=== PATIENT | female | born 1980 | race Asian ===

== ENCOUNTER → 2020-04-10 | Outpatient (CLI) | payer BC ==
[2020-04-10 11:25] LABS: BASOPHILS # (AUTO) 0.1 10^3/uL (0.0-0.1); BASOPHILS % (AUTO) 0.9 %; EOSINOPHILS # (AUTO) 0.9 10^3/uL (0.0-0.7); EOSINOPHILS % (AUTO) 11.7 %; HGB - HEMOGLOBIN 15.5 g/dL (12.0-16.0); LYMPHOCYTES # (AUTO) 2.5 10^3/uL (1.5-3.5); LYMPHOCYTES % (AUTO) 32.6 %; MEAN CORPUSCULAR HGB CONC 33.1 g/dL (32.0-36.0); MEAN CORPUSCULAR VOLUME 87.6 fL (81.0-99.0); MEAN PLATELET VOLUME 9.4 fL (7.9-10.8); MONOCYTES # (AUTO) 0.5 10^3/uL (0.0-1.0); MONOCYTES % (AUTO) 5.9 %; NEUTROPHILS # (AUTO) 3.7 10^3/uL (1.5-6.6); NEUTROPHILS % (AUTO) 48.6 %; PLT - PLATELET COUNT 429 10^3/uL (130-450); RED BLOOD COUNT 5.34 10^6/uL (4.20-5.40); RED CELL DISTRIBUTION WIDTH 12.5 % (12.0-15.0); WHITE BLOOD COUNT 7.7 x10^3/uL (4.8-10.8)
[2020-04-10 12:00] LABS: ALBUMIN 4.5 g/dL (3.2-5.5); ALBUMIN/GLOBULIN RATIO 1.3 (1.0-2.2); BILIRUBIN,TOTAL 0.4 mg/dL (0.2-1.0); CALCIUM 9.4 mg/dL (8.5-10.3); CREATININE 0.6 mg/dL (0.4-1.0); TOTAL PROTEIN 7.9 g/dL (6.7-8.2)
== END ==
LOC: LAB.WCP 07:59
PROVIDERS: ATTEND Family Medicine
DX: K11.1 Hypertrophy of salivary gland (principal); R03.0 Elevated blood-pressure reading, without diagnosis of hypertension; K11.8 Other diseases of salivary glands
CPT/HCPCS: 36415; 80053; 82670; 84443; 85025; 85651

== ENCOUNTER 2020-07-14 12:41 | Outpatient (CLI) | payer BC | END 2020-07-14 12:42 | disposition home or self-care (01) | LOC: DI.N 12:41 | PROVIDERS: ATTEND Family Medicine | DX: Z53.9 Procedure and treatment not carried out, unspecified reason (principal) ==

== ENCOUNTER 2020-07-18 18:41 | Outpatient (CLI) | payer OTHER, BC ==
--- NOTE | 2020-07-18 22:42 | XRAY Report ---
PROCEDURE: Lumbar Spine 2 View INDICATIONS: Muscle Spasm, Lumbar Region TECHNIQUE: 2 views of the lumbar spine were acquired. COMPARISON: None. FINDINGS: Bones: 5 [id number] vertebrae are present. There is facet arthrosis in the lower lumbar spine. There are multifocal degenerative changes. Anterior osteophytes are seen at multiple levels. There is normal bony alignment. No vertebral body compression fractures. No suspicious bony lesions. Soft tissues: Overlying bowel gas pattern is normal. No suspicious soft tissue calcifications. IMPRESSION: 1. No acute abnormality of the lumbar spine. 2. Chronic multifocal degenerative changes. Reviewed by: Topher Duarte on 07/18/2020 10:40 PM [facility] Approved by: Topher Duarte on 07/18/2020 10:40 PM [facility] Station ID: [id number]
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
== END 2020-07-18 18:42 | disposition home or self-care (01) ==
LOC: DI 18:41
PROVIDERS: ATTEND Family Medicine
DX: R19.03 Right lower quadrant abdominal swelling, mass and lump (principal); M47.816 Spondylosis without myelopathy or radiculopathy, lumbar region
CPT/HCPCS: 72100; 76857

== ENCOUNTER 2020-08-16 09:59 | Outpatient (CLI) | payer BC ==
[2020-08-16] MEDS ORDERED: IOVERSOL 320 50 ML VIAL ONE (10:12)
[2020-08-16] MEDS ORDERED: IOVERSOL 320 100 ML VIAL IVP ONE ×2 (10:12→18:51)
[2020-08-16] MEDS ORDERED: IOVERSOL 320 50 ML VIAL PO ONE (18:51)
--- NOTE | 2020-08-16 19:55 | CT Report ---
PROCEDURE: Abdomen/Pelvis W INDICATIONS: RLQ PELVIC PAIN WITH PELVIC MASS CONTRAST: IV CONTRAST: Optiray 320 ml: 100 PO CONTRAST: Optiray 320 ml50 TECHNIQUE: After the administration of oral and intravenous contrast, 5 mm thick sections acquired from the diap hragms to the symphysis. 5 mm thick coronal and sagittal reformats were acquired. For radiation dos e reduction, the following was used: automated exposure control, adjustment of mA and/or kV accordin g to patient size. COMPARISON: Pelvic ultrasound 07/09/2020.. FINDINGS: Image quality: Excellent. ABDOMEN: Lung bases: Lung bases are clear. Heart size is normal. Solid organs: Liver and spleen are normal in size. Hepatic steatosis. Gallbladder is unremarkable. Biliary system is non dilated. Pancreas enhances normally. No adrenal nodules. Kidneys demonstrat e normal size and enhancement, without hydronephrosis. Peritoneum and bowel: Bowel loops demonstrate normal wall thickness and caliber. Appendix is normal . No free fluid or air. Nodes and vessels: No retroperitoneal or mesenteric adenopathy by size criteria. Aorta and inferior vena cava are normal in size. Miscellaneous: Small fat-containing periumbilical hernia. PELVIS: Genitourinary: Bladder wall thickness is normal. -Soft tissue density lobular mass in the right pelvis abutting the uterus measuring 5.1 x 4.4 x 4.1 c m, ( and ), 46 cc. Suspect cystic component. (This measured 4.9 x 4.8 x 4.2 cm and 51 cc on u ltrasound 07/18/2020). -Soft tissue ovoid mass in the left pelvis abutting uterus measuring 4.5 x 3.1 x 2.7 cm, ( and ), 20 cc. -Enlarged fibroid uterus measuring 14 x 12.4 x 8.4 cm, estimated volume of 758 cc. -Large right intramural fibroid measuring 9 x 9 x 8.7 cm, (02/25). Miscellaneous: No inguinal hernias or adenopathy. Bones: No suspicious bony lesions. Right femoral neck bone island. No vertebral body compression fr actures. IMPRESSION: 1. Suspect right ovarian lobulated mass measuring 5.1 cm. 2. Left ovary appears enlarged. 3. Fibroid uterus measuring 14 cm. 4. No adenopathy. No ascites. Gynecological consultation is recommended. MRI of the pelvis with IV contrast may be helpful for further characterization. Reviewed by: Fady Otero MD on 08/16/2020 6:54 PM [facility] Approved by: Fady Otero MD on 08/16/2020 6:54 PM [facility] Station ID: [id number]
== END 2020-08-16 10:00 | disposition home or self-care (01) ==
LOC: DI 09:59
PROVIDERS: ATTEND Family Medicine
DX: R19.03 Right lower quadrant abdominal swelling, mass and lump (principal); D25.1 Intramural leiomyoma of uterus; N83.8 Other noninflammatory disorders of ovary, fallopian tube and broad ligament
CPT/HCPCS: 74177; Q9967

== ENCOUNTER 2020-09-26 18:44 | Outpatient (CLI) | payer BC ==
[2020-09-26 20:05] LABS: ALBUMIN 4.2 g/dL (3.2-5.5); ALBUMIN/GLOBULIN RATIO 1.2 (1.0-2.2); ALKALINE PHOSPHATASE 43 IU/L (42-121); ALT ALANINE AMINOTRANSFERASE 23 IU/L (10-60); AST ASPARTATE AMINOTRANSFERASE 16 IU/L (10-42); BILIRUBIN,TOTAL 0.7 mg/dL (0.2-1.0); BUN - BLOOD UREA NITROGEN 10 mg/dL (6-20); CALCIUM 9.7 mg/dL (8.5-10.3); CARBON DIOXIDE - CO2 23 mmol/L (21-32); CHLORIDE 102 mmol/L (101-111); CHOL/HDL RATIO 4.5 (<4.4); CHOLESTEROL 179 mg/dL; CREATININE 0.6 mg/dL (0.4-1.0); GLUCOSE 90 mg/dL (70-100); HDL CHOLESTEROL 40 mg/dL; LDL CHOLESTEROL,CALCULATED 122 mg/dL; LDL/HDL RATIO 3.1 (<4.4); TOTAL PROTEIN 7.7 g/dL (6.7-8.2); VLDL CHOLESTEROL 17 mg/dL
[2020-09-26 20:13] LABS: CA 125 19.6 U/mL (0.0-35.0)
--- NOTE | 2020-09-26 21:09 | Ultrasound Report ---
PROCEDURE: Pelvic w/Transvaginal INDICATIONS: UTERINE FIBROIDS, OVARIAN MASS TECHNIQUE: Real-time scanning was performed of the pelvic organs, with image documentation. Additional endovagi nal scanning was necessary due to incomplete visualization of the adnexal and endometrial structures by transabdominal scanning. COMPARISON: None. FINDINGS: No pathologic free abdominal or pelvic fluid. Uterus: Uterus is enlarged, measuring 14.3 x 3.8 x 11.5 cm. Central anterior subserosal and intramur al fibroid measuring 11.5 x 7.6 x 9.1 cm is present. The endometrium measures 6.8 mm in combined thic kness. Ovaries: Right ovary is within normal limits as visualized, but is suboptimally visualized secondary to bowel gas. Complex cyst within the left ovary measuring 36 mm. IMPRESSION: 1. Uterine fibroid. 2. Complex left ovarian cyst. Follow-up pelvic ultrasound in 6 weeks is recommended to ensure resolut ion. Reviewed by: Janeth Anderson MD on 09/26/2020 9:08 PM PST Approved by: Janeth Anderson MD on 09/26/2020 9:08 PM PST Station ID: [id number]
[2020-09-27 11:54] LABS: HEMOGLOBIN A1c% 5.3 % (4.27-6.07)
== END 2020-09-26 18:45 | disposition home or self-care (01) ==
LOC: DI 18:44
PROVIDERS: ATTEND Obstetrics & Gynecology
DX: D25.1 Intramural leiomyoma of uterus (principal); D25.2 Subserosal leiomyoma of uterus; N83.202 Unspecified ovarian cyst, left side; Z13.1 Encounter for screening for diabetes mellitus; Z13.220 Encounter for screening for lipoid disorders; Z13.21 Encounter for screening for nutritional disorder; Z13.29 Encounter for screening for other suspected endocrine disorder; Z12.4 Encounter for screening for malignant neoplasm of cervix
CPT/HCPCS: 36415; 80053; 80061; 82306; 83036; 83721; 84443; 86304

== ENCOUNTER 2020-12-06 18:18 | Outpatient (CLI) | payer BC ==
--- NOTE | 2020-12-07 07:43 | Ultrasound Report ---
PROCEDURE: Pelvic w/Transvaginal INDICATIONS: OVARIAN CYST, UTERINE FIBROIDS TECHNIQUE: Real-time scanning was performed of the pelvic organs, with image documentation. Additional endovagi nal scanning was necessary due to incomplete visualization of the adnexal and endometrial structures by transabdominal scanning. COMPARISON: 09/26/2020, 07/18/2020. Correlation is also made with CT 08/16/2020 FINDINGS: No pathologic free abdominal or pelvic fluid. Uterus: Uterus is enlarged, measuring 14.4 x 8.7 x 10.3 cm. There is a right-sided uterine fibroid s een measures 11.2 x 9.1 x 9.4 cm, which previously measured 11.3 x 7.6 x 9.1 cm. The endometrium me asures 8 mm in combined thickness. Ovaries: The right ovary measures 5.9 x 2.8 x 4.2 cm and the left ovary measures 5.3 x 3.8 x 3 cm. T here is an irregular left ovarian cyst seen that measures 2.3 x 2.1 x 1.5 cm, the previously measured 3.6 x 3.5 x 3.1 cm. No significant additional ovarian abnormalities are seen. No adnexal masses are seen. IMPRESSION: Resolving complex left ovarian cyst. Enlarged uterus, with a prominent stable uterine fibroid. Reviewed by: Miguel Hunter MD on 12/07/2020 6:42 AM [facility] Approved by: Miguel Hunter MD on 12/07/2020 6:42 AM [facility] Station ID: [id number]
== END 2020-12-06 18:19 | disposition home or self-care (01) ==
LOC: DI 18:18
PROVIDERS: ATTEND Obstetrics & Gynecology
DX: N83.292 Other ovarian cyst, left side (principal); D25.9 Leiomyoma of uterus, unspecified